=== PATIENT | female | born 2000 | race African-American/Black ===

== ENCOUNTER 2022-05-09 22:41 | Emergency (ER) | payer MEDICAID ==
[~2022-05-09] VITALS: Ht 160 cm; Wt 68.6 kg
[2022-05-09 23:04] VITALS: BP 119/47
[2022-05-10 01:56] LABS: CLARITY URINE CLEAR (CLEAR); COLOR URINE YELLOW (YELLOW); KETONES URINE 2+ (NEGATIVE); LEUKOCYTE ESTERASE URINE NEGATIVE (NEGATIVE); NITRITE URINE NEGATIVE (NEGATIVE); OCCULT BLOOD URINE NEGATIVE (NEGATIVE); PH URINE 5.5 (4.5-8.0); PROTEIN URINE NEGATIVE (NEGATIVE); SPECIFIC GRAVITY URINE 1.031 (1.005-1.030); UROBILINOGEN URINE 0.2 E.U./dL (0.2-1.0)
[2022-05-10] MEDS ORDERED: AZITHROMYCIN 500 MG TABLET PO ONE (04:15)
[2022-05-10] MEDS ORDERED: CEFTRIAXONE SODIUM 500 MG/VIAL IM ONE (04:15)
[2022-05-15 04:07] LABS: NEISSERIA GONORRHOEAE NAA Negative (Negative)
== END 2022-05-10 05:26 | disposition home or self-care (01) ==
LOC: ER 23:07
DX: O23.511 Infections of cervix in pregnancy, first trimester (principal); Z3A.08 8 weeks gestation of pregnancy; R10.30 Lower abdominal pain, unspecified
CPT/HCPCS: 36415; 76801; 81003; 81025; 84702; 87491; 87591; 96372; 99284; J0696

== ENCOUNTER 2024-02-19 01:59 | Emergency (ER) | payer MEDICAID ==
[~2024-02-19] VITALS: Ht 162.6 cm; Wt 68.0 kg
[2024-02-19 02:06] VITALS: BP 140/81; PULSE 108; RESP 18; TEMP 97.8; O2SAT 95
[2024-02-19] MEDS ORDERED: TETANUS, DIPHTHERIA, PERTUSSIS VAC/PF 0.5ML (>10YR OLD) IM ONE (02:30)
[2024-02-19] MEDS ORDERED: HYDROCODONE/ACETAMINOPHEN 5/325MG TABLET PO ONE (02:30)
[2024-02-19] MEDS: TETANUS, DIPHTHERIA, PERTUSSIS VAC/PF 0.5ML (>10YR OLD) IM ONE (03:45)
[2024-02-19] MEDS: HYDROCODONE/ACETAMINOPHEN 5/325MG TABLET PO NR (03:45)
[2024-02-19] MEDS ORDERED: IBUP-2029 MT (06:06)
== END 2024-02-19 06:32 | disposition home or self-care (01) ==
LOC: ER 01:59
DX: S00.83XA Contusion of other part of head, initial encounter (principal); F07.81 Postconcussional syndrome; X58.XXXA Exposure to other specified factors, initial encounter; Y93.89 Activity, other specified; Y92.89 Other specified places as the place of occurrence of the external cause; Y99.8 Other external cause status
CPT/HCPCS: 70486; 90471; 90715; 99284